=== PATIENT | male | born 1965 | race Caucasian/White ===

== ENCOUNTER 2018-12-04 19:29 | Inpatient (IN) | payer MEDICARE ==
[~2018-12-04] VITALS: Ht 172.7 cm; Wt 123.4 kg
[~2018-12-04 19:29] MED LIST: BACTRIM DS TABL1 TAB PO; HYDROCODON-ACE1 EAC7 PO; MOBIC7.5 MG PO; NORVASC5 MG PO; ZESTRIL20 MG PO
[2018-12-04] MEDS ORDERED: [UNRECOGNIZED DRUG - REMARK] (19:35)
[2018-12-04 20:19] LABS: BASOPHILS 0.1 % (0-2); EOSINOPHILS 0.1 % (0-7); HEMATOCRIT 45.1 % (42.0-54.0); IMMATURE GRANULOCYTES 0.4 % (0-5); LYMPHOCYTES 6.3 % (15-50); MCH 35.9 pg (26.0-34.0); MCHC 35.5 g/dL (31.0-37.0); MCV 101.1 fL (80.0-100.0); MEAN PLATELET VOLUME 10.5 fL (7.4-10.4); MONOCYTES 11.7 % (2-11); NEUTROPHILS 81.4 % (40-80); RBC 4.46 10x6/uL (4.20-6.10); RDW 15.1 % (11.5-14.5); WBC 12.6 10x3/uL (4.8-10.8)
[2018-12-04 20:27] LABS: PLATELET COUNT 134 10x3/uL (130-400)
[2018-12-04 20:36] LABS: ALBUMIN 3.8 g/dL (3.4-5.0); ALKALINE PHOSPHATASE 52 U/L (46-116); ALT (SGPT) 69 U/L (10-68); CALC OSMOLALITY 267 mosm/kg (275-300); CALCIUM 8.8 mg/dL (8.5-10.1); CARBON DIOXIDE 19.2 mmol/L (21.0-32.0); CHLORIDE - SERUM 95 mmol/L (98-107); CREATININE - SERUM 1.1 mg/dL (0.6-1.3); GLUCOSE 94 mg/dL (74-106); POTASSIUM - SERUM 3.5 mmol/L (3.5-5.1); PROTEIN - SERUM 7.6 g/dL (6.4-8.2); SODIUM 133 mmol/L (136-145); UREA NITROGEN 19 mg/dL (7-18); eGFR NON AFRICAN AMERICAN 74 mL/min (90-120)
[2018-12-04 21:06] LABS: CKMB 51.4 U/L (0.0-3.6); MAGNESIUM - SERUM 1.7 mg/dL (1.8-2.4); PRO BNP 496 pg/mL (0-125); THYROID STIMULATING HORMONE 3.65 uIU/mL (0.36-3.74)
[2018-12-04 21:10] LABS: CREATINE KINASE 10234 UL (21-232); TROPONIN-I < 0.017 ng/mL (0.000-0.060)
--- NOTE | 2018-12-04 21:14 | NUR ---
PT'S BROTHER AT BEDSIDE, STATES PT HAS BEEN HAVING MOMENTS OF MODERATE CONFUSION ALONG WITH INCREASED GENERALIZED WEAKNESS FOR A FEW WEEKS NOW. PT'S PLAN OF CARE DISCUSSED WITH PT AND PT'S BROTHER, BOTH VERBALIZED UNDERSTANDING DENY ANY NEEDS OR COMPLAINTS AT THIS TIME. WILL CONTINUE TO MONITOR PT.
[2018-12-04 21:23] LABS: APPEARANCE CLEAR (CLEAR); BILIRUBIN NEGATIVE (NEGATIVE); COLOR DK YELLOW (YELLOW); GLUCOSE NEGATIVE (NEGATIVE); KETONE MODERATE mg/dL (NEGATIVE); NITRITE NEGATIVE (NEGATIVE); PROTEIN 1+ mg/dL (NEGATIVE); RED CELLS - URINE 0-5 /hpf (0-5); SPECIFIC GRAVITY 1.025 (1.005-1.020); UROBILINOGEN NORMAL (NORMAL); WHITE CELLS - URINE OCC /hpf (0-5)
[2018-12-04 21:24] LABS: BACTERIA FEW /hpf (NONE SEEN)
[2018-12-04 21:53] LABS: UDS - AMPHET NEGATIVE QUAL (NEGATIVE); UDS - BARB NEGATIVE QUAL (NEGATIVE); UDS - BENZO NEGATIVE QUAL (NEGATIVE); UDS - COCAINE NEGATIVE QUAL (NEGATIVE); UDS - OPIATE NEGATIVE QUAL (NEGATIVE); UDS - PCP NEGATIVE QUAL (NEGATIVE); UDS - THC NEGATIVE QUAL (NEGATIVE)
[2018-12-04] MEDS ORDERED: ASPIRIN81 MG (23:59)
--- NOTE | 2018-12-05 01:17 | NUR ---
RECEIVED PATIENT FROM ER. PATIENT SEEMS TO BE VERY CONFUSED, INTRODUCED SELF TO PATIENT. PATIENT CONTINUES TO TELL STAFF HE'S A [facility] AND THAT WE ALL THINK HE'S A MONSTER AND WON'T COME IN HIS ROOM BECAUSE WE THINK HE WILL KILL US. TRIED TO REORIENT PATIENT TO SITUATION AND PLACE. BED IN LOWEST POSITION, CALL LIGHT IN REACH.
[2018-12-05 02:39] VITALS: BP 161/28; BMI 41.4
[2018-12-05 04:00] VITALS: BP 172/85
[2018-12-05 05:11] LABS: BASOPHILS 0.3 % (0-2); EOSINOPHILS 0.7 % (0-7); HEMATOCRIT 44.9 % (42.0-54.0); HEMOGLOBIN 15.7 g/dL (13.5-17.5); IMMATURE GRANULOCYTES 0.5 % (0-5); LYMPHOCYTES 16.2 % (15-50); MCH 35.3 pg (26.0-34.0); MCV 100.9 fL (80.0-100.0); MEAN PLATELET VOLUME 10.2 fL (7.4-10.4); MONOCYTES 9.6 % (2-11); NEUTROPHILS 72.7 % (40-80); PLATELET COUNT 156 10x3/uL (130-400); RBC 4.45 10x6/uL (4.20-6.10); RDW 15.4 % (11.5-14.5); WBC 11.1 10x3/uL (4.8-10.8)
[2018-12-05 05:35] LABS: ALBUMIN 3.9 g/dL (3.4-5.0); ALKALINE PHOSPHATASE 54 U/L (46-116); ALT (SGPT) 71 U/L (10-68); BILIRUBIN - TOTAL 1.49 mg/dL (0.2-1.3); CALC OSMOLALITY 270 mosm/kg (275-300); CALCIUM 8.5 mg/dL (8.5-10.1); CARBON DIOXIDE 16.3 mmol/L (21.0-32.0); CHLORIDE - SERUM 97 mmol/L (98-107); GLUCOSE 88 mg/dL (74-106); MAGNESIUM - SERUM 1.8 mg/dL (1.8-2.4); POTASSIUM - SERUM 3.5 mmol/L (3.5-5.1); PROTEIN - SERUM 7.7 g/dL (6.4-8.2); SODIUM 135 mmol/L (136-145); UREA NITROGEN 17 mg/dL (7-18); eGFR NON AFRICAN AMERICAN 83 mL/min (90-120)
[2018-12-05 05:37] LABS: CREATINE KINASE 9412 UL (21-232)
[2018-12-05 05:58] LABS: CKMB 32.2 U/L (0.0-3.6)
--- NOTE | 2018-12-05 07:15 | NUR ---
MORNING ASSESSMENT COMPLETE. SEE ASSESSMENT FLOWSHEET FOR FURTHER DETAILS. PT LYING IN BED CONFUSED. SAYS THERES PEOPLE IN THE ROOM AND HE APPEARS TO HAVE CUT HIS IV TUBING. CLAIMS RESPIRATORY CUT IV. PUT ON NEW J LOOP AND TOLD HIM NOT TO MESS WITH THE IV. CONTINUES TO PULL ON IT. WILL MONIOTR PT. CL IN REACH. GILBERT ALARM IN PLACE.
[2018-12-05 08:00] VITALS: BP 142/97
[2018-12-05 12:47] VITALS: Ht 172.7 cm; Wt 123.4 kg
[2018-12-05 13:25] VITALS: BP 135/76
--- NOTE | 2018-12-05 14:17 | MORECARE ---
CASE MANAGEMENT DISCHARGE SUMMARY PATIENT: ANDREW ARMSTRONG JEFF UNIT: [id number] ADM DATE: 12/05/18 AGE: 53 : 65 SEX: M ROOM/BED: D.2211 AUTHOR: SERA MAHONEY PHYSICIAN: REFERRING PHYSICIAN: UZAIR DIAS MD DATE OF SERVICE: 12/05/18 Discharge Plan Patient Name: ANDREW ARMSTRONG [facility] [facility] 1965 Planned Disposition: Home Anticipated Discharge Date: Discharge Date: Expected LOS: Initial Reviewer: [email or web address] Initial Review Date: 12/04/2018 Generated: 12/05/18 3:17 pm Patient Name: ANDREW ARMSTRONG Page [id number] at 1417 All edits/amendments must be made on the electronic document DICTATION DATE: 12/05/18 1416 BEREAVEMENT COORDINATOR: STEFFANIE 12/05/18 1416 RPT#: [id number] DC DATE: STATUS: ADM IN [facility] [address] [place] [address] END OF REPORT
--- NOTE | 2018-12-05 14:26 | MORECARE ---
CASE MANAGEMENT DISCHARGE SUMMARY PATIENT: ANDREW ARMSTRONG JEFF UNIT: [id number] ADM DATE: 12/05/18 AGE: 53 : 65 SEX: M ROOM/BED: D.2211 AUTHOR: SERA MAHONEY PHYSICIAN: REFERRING PHYSICIAN: UZAIR DIAS MD DATE OF SERVICE: 12/05/18 Discharge Plan Patient Name: ANDREW ARMSTRONG Facility: [facility]:[place] : 1965 Planned Disposition: Home Anticipated Discharge Date: Discharge Date: Expected LOS: Initial Reviewer: [email or web address] Initial Review Date: 12/04/2018 Generated: 12/05/18 3:26 pm Comments DCP- Discharge Planning Updated by [email or web address]: Fifi العراقي on 12/05/18 1:[address] Patient Name: ANDREW ARMSTRONG Admission Status: ER Accout number: [id number] Admission Date: 12-05-2018 : 1965 Admission Diagnosis: Attending: UZAIR DIAS Current LOS: 1 Anticipated DC Date: Planned Disposition: Home Primary Insurance: MEDICARE A & B Discharge Planning Comments: Attempted to see patient, but he is unable to answer questions due to confusion. Oscar with RT is his cousin and stated that he got a call from his aunt saying that he has been on the floor for 26 hours. Oscar could not get him up and called EMS. Usually the patient is independent with his care and he helps care for his 90 year old mother. He has a cane that he uses at time. CM will continue to follow and assist with dc planning as needed Planning Intern: Fifi العراقي Last DP export: 12/05/18 1:17 p Patient Name: ANDREW ARMSTRONG Page [id number] at 1425 All edits/amendments must be made on the electronic document DICTATION DATE: 12/05/181424 PROCESS WORKER: STEFFANIE 12/05/181424 RPT#: [id number] DC DATE: STATUS: ADM IN [facility] [address] [place] [address] END OF REPORT
[2018-12-05 16:30] VITALS: BP 162/97
[2018-12-05 20:41] VITALS: BP 101/65
--- NOTE | 2018-12-05 21:05 | NUR ---
EYES CLOSED RESPIRATIONS WITH EASE AND UNLABORED. AROUSES EASILY TO VERBAL STIMULI. IV PATENT RT HAND OF MVI INFUSING AT 125CC'S/HR.
--- NOTE | 2018-12-05 23:15 | NUR ---
PATIENT UP TO BATHROOM BY SELF STATED NO NEEDS NO S/S OF DISTRESS AND NO NEEDS AT THIS TIME.
[2018-12-06 00:33] VITALS: BP 124/64
[2018-12-06 05:33] LABS: BASOPHILS 0.3 % (0-2); EOSINOPHILS 1.5 % (0-7); HEMATOCRIT 38.6 % (42.0-54.0); HEMOGLOBIN 13.3 g/dL (13.5-17.5); IMMATURE GRANULOCYTES 0.6 % (0-5); LYMPHOCYTES 19.6 % (15-50); MCH 35.3 pg (26.0-34.0); MCHC 34.5 g/dL (31.0-37.0); MCV 102.4 fL (80.0-100.0); MEAN PLATELET VOLUME 10.4 fL (7.4-10.4); RBC 3.77 10x6/uL (4.20-6.10); RDW 15.4 % (11.5-14.5)
[2018-12-06 05:48] LABS: CALC OSMOLALITY 278 mosm/kg (275-300); CALCIUM 7.7 mg/dL (8.5-10.1); CHLORIDE - SERUM 104 mmol/L (98-107); CREATININE - SERUM 0.9 mg/dL (0.6-1.3); GLUCOSE 75 mg/dL (74-106); PLATELET COUNT 116 10x3/uL (130-400); POTASSIUM - SERUM 3.1 mmol/L (3.5-5.1); SODIUM 140 mmol/L (136-145); UREA NITROGEN 14 mg/dL (7-18); WBC 7.2 10x3/uL (4.8-10.8); eGFR NON AFRICAN AMERICAN > 90 mL/min (90-120)
[2018-12-06 05:52] VITALS: BP 133/76
[2018-12-06 05:55] LABS: CARBON DIOXIDE 25.5 mmol/L (21.0-32.0)
--- NOTE | 2018-12-06 07:15 | NUR ---
MORNING ASSESSMENT COMPLETE. SEE ASSESSMENT FLOWSHEET FOR FURTHER DETAILS. PT LYING IN BED AAO X4 TO PERSON, PLACE, TIME, AND SITUATION. DENIES NEEDS AT THIS ITME. CL IN REACH.
[2018-12-06 09:04] VITALS: BP 119/80
[2018-12-06 09:38] LABS: ALBUMIN 3.1 g/dL (3.4-5.0); ALKALINE PHOSPHATASE 38 U/L (46-116); ALT (SGPT) 76 U/L (10-68); BILIRUBIN - DIRECT 0.17 mg/dL (0.00-0.30); BILIRUBIN - INDIRECT 0.68 mg/dL (0.00-1.00); BILIRUBIN - TOTAL 0.85 mg/dL (0.2-1.3); MAGNESIUM - SERUM 2.2 mg/dL (1.8-2.4); PROTEIN - SERUM 6.1 g/dL (6.4-8.2)
[2018-12-06 09:41] LABS: CREATINE KINASE 5832 UL (21-232)
[2018-12-06 13:33] VITALS: BP 132/79
[2018-12-06 16:56] VITALS: BP 104/61
[2018-12-06 20:00] VITALS: BP 110/63
[2018-12-07] VITALS: BP 111/74
[2018-12-07 04:00] VITALS: BP 125/73
[2018-12-07 04:37] LABS: BASOPHILS 0.6 % (0-2); EOSINOPHILS 2.5 % (0-7); HEMATOCRIT 38.1 % (42.0-54.0); IMMATURE GRANULOCYTES 0.9 % (0-5); LYMPHOCYTES 24.7 % (15-50); MCHC 34.1 g/dL (31.0-37.0); MCV 102.7 fL (80.0-100.0); MEAN PLATELET VOLUME 10.3 fL (7.4-10.4); MONOCYTES 12.4 % (2-11); NEUTROPHILS 58.9 % (40-80); PLATELET COUNT 123 10x3/uL (130-400); RBC 3.71 10x6/uL (4.20-6.10); RDW 15.6 % (11.5-14.5); WBC 6.4 10x3/uL (4.8-10.8)
[2018-12-07 05:08] LABS: ALBUMIN 2.8 g/dL (3.4-5.0); ALKALINE PHOSPHATASE 53 U/L (46-116); ALT (SGPT) 64 U/L (10-68); BILIRUBIN - TOTAL 0.61 mg/dL (0.2-1.3); CALC OSMOLALITY 290 mosm/kg (275-300); CALCIUM 8.6 mg/dL (8.5-10.1); CARBON DIOXIDE 25.5 mmol/L (21.0-32.0); CHLORIDE - SERUM 109 mmol/L (98-107); CKMB 4.3 U/L (0.0-3.6); CREATININE - SERUM 0.9 mg/dL (0.6-1.3); GLUCOSE 98 mg/dL (74-106); POTASSIUM - SERUM 3.1 mmol/L (3.5-5.1); SODIUM 146 mmol/L (136-145); UREA NITROGEN 12 mg/dL (7-18); eGFR NON AFRICAN AMERICAN > 90 mL/min (90-120)
[2018-12-07 05:13] LABS: CREATINE KINASE 2325 UL (21-232)
[2018-12-07 08:06] VITALS: BP 117/78
[2018-12-07] MEDS ORDERED: LEVAQUIN750 MG PO (10:17)
--- NOTE | 2018-12-07 10:34 | NUR ---
ALERT AND ORIENTEDX3 GOOD ROM OF EXT. X4. SITTING UP ON SOB WITH NO C/O NOTED. DENIES ANY PAIN OR DISCOMFORT WIT MOTHER PRESENT. NO PERIPHERAL EDEMA NOTTEDE S/L TO RT HAND. ENCOURAGED TO USE C/L FOR ASSIST AND VERBALIZED UNDERSTANDING.
--- NOTE | 2018-12-07 10:46 | MORECARE ---
CASE MANAGEMENT DISCHARGE SUMMARY PATIENT: ANDREW ARMSTRONG JEFF UNIT: [id number] ADM DATE: 12/05/18 AGE: 53 : 65 SEX: M ROOM/BED: D.2211 AUTHOR: SERA MAHONEY PHYSICIAN: REFERRING PHYSICIAN: UZAIR DIAS MD DATE OF SERVICE: 12/07/18 Discharge Plan Patient Name: ANDREW ARMSTRONG Facility: [facility]:[place] : 1965 Planned Disposition: Home Anticipated Discharge Date: Discharge Date: Expected LOS: Initial Reviewer: [email or web address] Initial Review Date: 12/04/2018 Generated: 12/07/18 11:46 am Comments DCP- Discharge Planning Updated by [email or web address]: Fifi العراقي on 12/07/18 9:[address] Patient Name: ANDREW ARMSTRONG Encounter No: [id number] : 1965 Primary Insurance: MEDICARE A & B Anticipated DC Date: Planned Disposition: Home External Planned Provider: : DCP follow-up note: Patient and family in agreement with discharge plan. No changes to plan. Case management will follow and assist as needed. Fifi العراقي DCP- Discharge Planning Updated by [email or web address]: Fifi العراقي on 12/05/18 1:[address] Patient Name: ANDREW ARMSTRONG Admission Status: ER Accout number: [id number] Admission Date: 12-05-2018 : 1965 Admission Diagnosis: Attending: UZAIR DIAS Current LOS: 1 Anticipated DC Date: Planned Disposition: Home Primary Insurance: MEDICARE A & B Discharge Planning Comments: Attempted to see patient, but he is unable to answer questions due to confusion. Oscar with RT is his cousin and stated that he got a call from his aunt saying that he has been on the floor for 26 hours. Oscar could not get him up and called EMS. Usually the patient is independent with his care and he helps care for his 90 year old mother. He has a cane that he uses at time. CM will continue to follow and assist with dc planning as needed Eligibility Technician: Fifi العراقي Last DP export: 12/05/18 1:26 p Patient Name: ANDREW ARMSTRONG Page [id number] at 1046 All edits/amendments must be made on the electronic document DICTATION DATE: 12/07/18 1045 SALES REPRESENTATIVE JEWELRY: STEFFANIE 12/07/18 1045 RPT#: [id number] DC DATE: STATUS: ADM IN [facility] [address] [place] [address] END OF REPORT
--- NOTE | 2018-12-07 10:53 | MORECARE ---
CASE MANAGEMENT DISCHARGE SUMMARY PATIENT: ANDREW ARMSTRONG JEFF UNIT: [id number] ADM DATE: 12/05/18 AGE: 53 : 65 SEX: M ROOM/BED: D.2211 AUTHOR: SERA MAHONEY PHYSICIAN: REFERRING PHYSICIAN: UZAIR DIAS MD DATE OF SERVICE: 12/07/18 Discharge Plan Patient Name: ANDREW ARMSTRONG Facility: [facility]:[place] : 1965 Planned Disposition: Home Anticipated Discharge Date: Discharge Date: Expected LOS: Initial Reviewer: [email or web address] Initial Review Date: 12/04/2018 Generated: 12/07/18 11:53 am Comments DCP- Discharge Planning Updated by [email or web address]: Fifi العراقي on 12/07/18 9:[address] Patients mom at bedside and stated that he is independent and wants to go home. No new needs identified DCP- Discharge Planning Updated by [email or web address]: Fifi العراقي on 12/07/18 9:[address] Patient Name: ANDREW ARMSTRONG Encounter No: [id number] : 1965 Primary Insurance: MEDICARE A & B Anticipated DC Date: Planned Disposition: Home External Planned Provider: : DCP follow-up note: Patient and family in agreement with discharge plan. No changes to plan. Case management will follow and assist as needed. Fifi العراقي DCP- Discharge Planning Updated by [email or web address]: Fifi العراقي on 12/05/18 1:[address] Patient Name: ANDREW ARMSTRONG Admission Status: ER Accout number: [id number] Admission Date: 12-05-2018 : 1965 Admission Diagnosis: Attending: UZAIR DIAS Current LOS: 1 Anticipated DC Date: Planned Disposition: Home Primary Insurance: MEDICARE A & B Discharge Planning Comments: Attempted to see patient, but he is unable to answer questions due to confusion. Oscar with RT is his cousin and stated that he got a call from his aunt saying that he has been on the floor for 26 hours. Oscar could not get him up and called EMS. Usually the patient is independent with his care and he helps care for his 90 year old mother. He has a cane that he uses at time. CM will continue to follow and assist with dc planning as needed Single Wire Saw Operator: Fifi العراقي Last DP export: 12/07/18 9:46 am Patient Name: ANDREW ARMSTRONG Page [id number] at 1053 All edits/amendments must be made on the electronic document DICTATION DATE: 12/07/18 1053 LAW ENFORCEMENT DIRECTOR: STEFFANIE 12/07/18 1053 RPT#: [id number] DC DATE: STATUS: ADM IN [facility] [address] [place] [address] END OF REPORT
--- NOTE | 2018-12-10 10:35 | MORECARE ---
CASE MANAGEMENT DISCHARGE SUMMARY PATIENT: ANDREW ARMSTRONG JEFF UNIT: [id number] ADM DATE: 12/05/18 AGE: 53 : 65 SEX: M ROOM/BED: D.2211 AUTHOR: SERA MAHONEY PHYSICIAN: REFERRING PHYSICIAN: UZAIR DIAS MD DATE OF SERVICE: 12/10/18 Discharge Plan Patient Name: ANDREW ARMSTRONG Facility: [facility]:[place] : 1965 Planned Disposition: Home Anticipated Discharge Date: Discharge Date: 12/07/2018 Expected LOS: 0 Initial Reviewer: [email or web address] Initial Review Date: 12/04/2018 Generated: 12/10/18 11:35 am Comments DCP- Discharge Planning Updated by [email or web address]: Fifi العراقي on 12/07/18 9:[address] Patients mom at bedside and stated that he is independent and wants to go home. No new needs identified DCP- Discharge Planning Updated by [email or web address]: Fifi العراقي on 12/07/18 9:[address] Patient Name: ANDREW ARMSTRONG Encounter No: [id number] : 1965 Primary Insurance: MEDICARE A & B Anticipated DC Date: Planned Disposition: Home External Planned Provider: : DCP follow-up note: Patient and family in agreement with discharge plan. No changes to plan. Case management will follow and assist as needed. Fifi العراقي DCP- Discharge Planning Updated by [email or web address]: Fifi العراقي on 12/05/18 1:[address] Patient Name: ANDREW ARMSTRONG Admission Status: ER Accout number: [id number] Admission Date: 12-05-2018 : 1965 Admission Diagnosis: Attending: UZAIR DIAS Current LOS: 1 Anticipated DC Date: Planned Disposition: Home Primary Insurance: MEDICARE A & B Discharge Planning Comments: Attempted to see patient, but he is unable to answer questions due to confusion. Oscar with RT is his cousin and stated that he got a call from his aunt saying that he has been on the floor for 26 hours. Oscar could not get him up and called EMS. Usually the patient is independent with his care and he helps care for his 90 year old mother. He has a cane that he uses at time. CM will continue to follow and assist with dc planning as needed Weatherization Installer: Fifi Torres DP export: 12/07/18 9:53 am Patient Name: ANDREW ARMSTRONG Page [id number] at 1035 All edits/amendments must be made on the electronic document DICTATION DATE: 12/10/18 1034 THREAD PULLING MACHINE ATTENDANT: STEFFANIE 12/10/18 1034 RPT#: [id number] DC DATE:12/07/18 STATUS: DIS IN [facility] [address] [place] [address] END OF REPORT
== END 2018-12-07 12:00 | disposition home or self-care (01) | DRG 558 ==
LOC: D.ER 19:29 → D.EDHOLD 22:15 → OBSVTIME 22:15 → D.MS 22:49
PROVIDERS: Family Medicine; ADMIT Internal Medicine Nephrology; ATTEND Internal Medicine Nephrology
DX: M62.82 Rhabdomyolysis (principal); N39.0 Urinary tract infection, site not specified; Z68.41 Body mass index [BMI] 40.0-44.9, adult; F17.213 Nicotine dependence, cigarettes, with withdrawal; E87.1 Hypo-osmolality and hyponatremia; G31.2 Degeneration of nervous system due to alcohol; F10.10 Alcohol abuse, uncomplicated; I10 Essential (primary) hypertension; D75.89 Other specified diseases of blood and blood-forming organs; E66.01 Morbid (severe) obesity due to excess calories; I45.10 Unspecified right bundle-branch block; Z91.81 History of falling; Z86.73 Personal history of transient ischemic attack (TIA), and cerebral infarction without residual deficits